=== PATIENT | female | born 1965 | race Hispanic/Latino ===

== ENCOUNTER 2020-10-10 05:43 | Day surgery (SDC) | payer BC ==
[2020-10-07 09:51] LABS: BASOPHILS % (AUTO) 1.4 % (0.0-5.0); EOSINOPHILS % (AUTO) 4.7 % (0.0-8.0); HEMATOCRIT 42.7 % (36-48); LYMPHOCYTES % (AUTO) 25.2 % (21.0-51.0); MEAN CORPUSCULAR HEMOGLOBIN 28.7 pg (27.0-33.0); MEAN CORPUSCULAR HGB CONC 32.6 g/dL (32.0-36.0); MEAN CORPUSCULAR VOLUME 88.2 fL (79-99); MONOCYTES % (AUTO) 6.9 % (3.0-13.0); NEUTROPHILS % (AUTO) 61.6 % (40.0-77.0); PLATELET COUNT (AUTO) 197 K/uL (130-400); RED BLOOD CELL COUNT(AUTO) 4.84 MIL/uL (4.00-5.50); RED CELL DISTRIBUTION WIDTH 14.9 % (11.0-15.5); WHITE BLOOD COUNT (AUTO) 5.5 K/uL (4.8-10.8)
[2020-10-07 11:03] LABS: CREATININE 0.8 mg/dL (0.5-1.5); POTASSIUM 3.5 mmol/L (3.5-5.1)
[2020-10-07 15:39] VITALS: BP 152/85
[~2020-10-10] VITALS: Ht 154.9 cm; Wt 86.6 kg
[2020-10-10] VITALS (21 sets, daily range): BP systolic 94–196; BP diastolic 55–102
[2020-10-10] MEDS ORDERED: LACTATED RINGERS 1000ML 1,000 ML IV ONE (07:01)
[2020-10-10] MEDS: CEFAZOLIN SODIUM 1 GM VIAL ONE ×2 (07:06→08:47)
[2020-10-10] MEDS ORDERED: LIDOCAINE PF 100MG/5ML (2%) SYRINGE 5ML ONE (07:53)
[2020-10-10] MEDS ORDERED: PROPOFOL 10 MG/ML 20ML VIAL IV ONE (07:54)
[2020-10-10] MEDS ORDERED: FENTANYL CITRATE PF 50 MCG/1 ML 2ML VIAL ONE (07:54)
[2020-10-10] MEDS ORDERED: ONDANSETRON 4MG INJ ONE (09:29)
[2020-10-10] MEDS ORDERED: KETOROLAC 30MG VIAL (30MG/ML) ONE (09:30)
[2020-10-10] MEDS ORDERED: MEPERIDINE-PF 25 MG/ML SYG ONE ×3 (09:35→10:18)
[2020-10-10] MEDS ORDERED: IBUP-2070 PO (09:45)
[2020-10-10] MEDS ORDERED: ACET1TAB25 PO (09:45)
[2020-10-10] MEDS ORDERED: CEPH500B PO (09:45)
[2020-10-10] MEDS ORDERED: HYDRALAZINE 20MG/ML VIAL ONE (10:06)
== END 2020-10-10 11:55 | disposition home or self-care (01) ==
LOC: DAH 05:43
PROVIDERS: ATTEND Orthopaedic Surgery
DX: M23.322 Other meniscus derangements, posterior horn of medial meniscus, left knee (principal); Z20.822 Contact with and (suspected) exposure to COVID-19; G89.29 Other chronic pain; E66.01 Morbid (severe) obesity due to excess calories; Z98.84 Bariatric surgery status; Z90.49 Acquired absence of other specified parts of digestive tract; Z90.710 Acquired absence of both cervix and uterus; Z98.890 Other specified postprocedural states; Z98.1 Arthrodesis status; Z87.891 Personal history of nicotine dependence; Z72.89 Other problems related to lifestyle
CPT/HCPCS: 29881; 36415; 80048; 85025; 87426; A4215; A4221; A4222; A4223; A4649 ×2; A4663; A4930 ×2; A6223; J0360; J0690; J1885; J2001; J2175 ×3; J2405; J2704; J3010; J7120